=== PATIENT | female | born 1945 | race Caucasian/White ===

== ENCOUNTER 2020-11-23 08:09 | Outpatient (CLI) | payer MEDICARE, SELFPAY ==
--- NOTE | 2020-11-23 08:17 | MM_ITS ---
WS: [id number] BILATERAL SCREENING DIGITAL MAMMOGRAM WITH CAD HISTORY: SCREENING COMPARISON: 03/25/2019 and 08/21/2017 Bilateral CC and MLO views submitted. Computer aided detection analyzed. Breast composition: There are scattered areas of fibroglandular density. No suspicious masses, microc alcifications or architectural distortion. Benign calcifications and vascular calcifications in each breast. MM/[place] [id number] IMPRESSION: BI-RADS: 2-Benign FOLLOW UP: 1 Year Follow-up
== END 2020-11-23 08:10 | disposition home or self-care (01) ==
LOC: RADSHAW 08:14
PROVIDERS: Family Provider Family Medicine; PCP Family Medicine; Visit Provider Family Medicine
DX: Z12.31 Encounter for screening mammogram for malignant neoplasm of breast (principal)
CPT/HCPCS: 77067

== ENCOUNTER 2021-11-23 13:13 | Outpatient (CLI) | payer MEDICARE, SELFPAY ==
--- NOTE | 2021-11-23 13:22 | MM_ITS ---
WS: [id number] BILATERAL 3D TOMOSYNTHESIS DIGITAL SCREENING MAMMOGRAPHY WITH CAD CLINICAL INFORMATION: SCREENING HISTORY: Screening mammogram. No current complaints. COMPARISON: November 23, 2020 TECHNIQUE: Bilateral CC and MLO views. FINDINGS: Scattered fibroglandular densities bilaterally. Incidental Punctate and lucent centered calcification s. Vascular calcification. Stable clustered calcifications LEFT breast. No suspicious focal mass, asy mmetry, calcifications, or architectural distortion. No evidence of malignancy. MM/[place] [id number] IMPRESSION: BI-RADS: 2-Benign FOLLOW UP: 1 Year Follow-up Recommend return to annual screening mammography.
== END 2021-11-23 13:14 | disposition home or self-care (01) ==
LOC: RAD 13:19
PROVIDERS: PCP Family Medicine; Visit Provider Family Medicine
DX: Z12.31 Encounter for screening mammogram for malignant neoplasm of breast (principal)
CPT/HCPCS: 77063; 77067

== ENCOUNTER 2021-12-28 13:11 | Outpatient (CLI) | payer MEDICARE, SELFPAY ==
--- NOTE | 2021-12-28 13:37 | XR_ITS ---
WS: [id number] SCREENING DEXA SCAN [employer] [place] CLINICAL INFORMATION: OSTEOPOROSIS COMPARISON: FINDINGS: The L1-L4 bone mineral density measures 1.036 g/cm2. This corresponds to a T score score of -1.2 and Z score of -0.6. Left femoral neck bone mineral density measures 0.838 g/cm2. This corresponds to a T score of -1.3 an d Z score of -0.3. Right femoral neck bone mineral density measures 0.863 g/cm2. This corresponds to a T score -1.1of an d Z score of -0.1. Mean femoral neck bone mineral density measures 0.850 g/cm2. This corresponds to a T score of -1.2 an d Z score of -0.2. XR/XR DEXA axial skeleton* [id number] IMPRESSION: Osteopenia lumbar spine. Osteopenia femoral necks. Patient's FRAX calculated 10 year probability for major osteoporotic fracture i s 11.3 % and osteoporotic hip fracture is 2.4%. Bone mineral density lumbar spine has increased 4.9% since 2019. Bone mineral density in the femoral necks has increased 0.6% since 2019.
== END 2021-12-28 13:12 | disposition home or self-care (01) ==
LOC: RAD 13:13
PROVIDERS: PCP Family Medicine; Visit Provider Family Medicine
DX: Z13.820 Encounter for screening for osteoporosis (principal); M85.89 Other specified disorders of bone density and structure, multiple sites
CPT/HCPCS: 77080

== ENCOUNTER 2022-03-02 19:44 | Inpatient (IN) | payer MEDICARE, SELFPAY ==
[2022-03-02 19:58] VITALS: BP 183/123; PULSE 108; RESP 18; TEMP 36.9; O2SAT 95; BMI 39.1
[2022-03-02 20:34] LABS: Blood Urine Trace (Negative); Glucose Urine UA Norm (Normal); Ketones Urine Negative (Negative); Protein Urine Neg (Negative); Specific Gravity, Urine 1.015 (1.005-1.030); Urine Appearance Clear (CLEAR); Urine Color Yellow (Yellow); pH Urine 5 (5-7)
[2022-03-02 20:35] LABS: Add Urine Microscopic? YES; Bilirubin Urine Neg (Negative); Leukocyte Esterase Urine Negative (Negative); Nitrate Urine Negative (Negative); Urobilinogen Urine Norm (Negative)
[2022-03-02 20:36] LABS: RBC Urine 0-4 /hpf (0-2); Squamous Epithelial Cell Urine 0-4 /hpf (0-5); WBC Urine 0-4 /hpf (0-5)
[2022-03-02 20:37] LABS: Add Urine Culture? No
[2022-03-02 20:40] LABS: Basophils # 0.1 10^3/uL (0.0-0.1); Basophils % 0.4 %; Eosinophils # 0.1 10^3/uL (0.0-0.8); Eosinophils % 0.4 %; Hematocrit 49.1 % (37.0-47.0); Hemoglobin 16.4 g/dL (11.5-15.3); Lymphocytes # 2.8 10^3/uL (0.8-4.8); Lymphocytes % 11.1 %; Mean Corpuscular HGB Conc 33.4 g/dL (30.0-36.0); Mean Corpuscular Hemoglobin 31.7 pg (28.0-34.0); Mean Platelet Volume 9.7 fL (7.4-10.4); Monocytes % 3.9 %; Neutrophils # 20.93 10^3/uL (1.8-7.7); Neutrophils % 83.9 %; Nucleated Red Blood Cells % 0 %; Platelet Count 318 10^3/cmm (130-400); Red Blood Count 5.17 10^6/uL (4.1-5.3); Red Cell Distribution Width 14.5 % (12.1-15.1)
[2022-03-02 21:00] LABS: Alanine Aminotransferase 24 U/L (0-33); Albumin Level 4.2 g/dL (3.5-5.2); Alkaline Phosphatase 106 U/L (35-105); Aspartate Amino Transferase 21 U/L (0-32); Blood Urea Nitrogen 14 mg/dL (8-23); Calcium 9.2 mg/dL (8.5-10.5); Carbon Dioxide 25 mmol/L (22-29); Chloride 101 mmol/L (98-107); Globulin 3.2 g/dL (1.3-4.6); Glucose 130 mg/dL (65-115); Lipase 30 U/L (13-60); Osmolality Calculated 288 mOsm/kg (285-295); Sodium 138 mmol/L (136-145); Total Bilirubin 0.4 mg/dL (0.15-1.2); Total Protein 7.4 g/dL (6.6-8.7)
[2022-03-02 21:02] LABS: Anion Gap 16.2 (5-19); Potassium 4.2 mmol/L (3.5-5.1)
--- NOTE | 2022-03-02 23:28 | CTR_ITS ---
PROCEDURE INFORMATION: Exam: CT Abdomen And Pelvis With Contrast Exam date and time: 03/03/2022 12:12 AM Age: 76 years old Clinical indication: Abdominal pain; Localized; Prior surgery; Surgery type: Hysterectomy; Patient HX: C/O lower abd pain. TECHNIQUE: Imaging protocol: Computed tomography of the abdomen and pelvis with contrast. Radiation optimization: All CT scans at this facility use at least one of these dose optimization techniques: automated exposure control; mA and/or kV adjustment per patient size (includes targeted exams where dose is matched to clinical indication); or iterative reconstruction. Contrast material: OMNI 350; Contrast volume: 100 ml; Contrast route: INTRAVENOUS (IV); COMPARISON: No relevant prior studies available. RADIATION DOSE METRICS: Total DLP (mGy-cm): 1053.73 FINDINGS: Lungs: The lung bases are clear. No effusion Diaphragm: Small hiatal hernia. Liver: There is fatty infiltration of the liver. Gallbladder and bile ducts: There is cholelithiasis without wall thickening or pericholecystic fluid. No bile duct stone. Pancreas: Normal. No ductal dilation. Spleen: Normal. No splenomegaly. Adrenal glands: Normal. No mass. Kidneys and ureters: There are multiple small bilateral parapelvic renal cyst. Stomach and bowel: There are multiple sigmoid diverticuli. There is perisigmoid fat stranding. No fluid collection . Appendix: No evidence of appendicitis. Intraperitoneal space: Unremarkable. No free air. No significant fluid collection. Vasculature: Unremarkable. No abdominal aortic aneurysm. Lymph nodes: Unremarkable. No enlarged lymph nodes. Urinary bladder: Small amount of contained perforation adjacent to the dome of the urinary bladder.. Reproductive: There has been a hysterectomy. Bones/joints: Unremarkable. No acute fracture. Soft tissues: Unremarkable. CT/CT abdomen pelvis w con* [id number] IMPRESSION: 1. Small hiatal hernia. 2. Fatty infiltration of the liver. 3. Cholelithiasis without cholecystitis or choledocholithiasis. 4. Acute diverticulitis with contained perforation adjacent to the urinary bladder. No abscess. COMMENTS: Consistent with the [place] [employer]'s Incidental Findings Committee white paper (J Am Aleyda Radiol 2018): Any incidental renal lesion less than 1 cm or classified as too small to characterize, or any incidental cystic renal lesion characterized as simple-appearing, is likely benign. No follow-up imaging is recommended for these lesions per consensus recommendations based on imaging criteria.
--- NOTE | 2022-03-02 23:37 | W.ED.ABDPA2 ---
HPI - Abdominal Pain General: Chief Complaint: Abdominal Pain Stated Complaint: lower abd pain Time Seen by Provider: 03/02/22 23:25 Source: patient Mode of arrival: ambulatory Limitations: no limitations History of Present Illness: 76-year-old female states she has been having epigastric along with right upper quadrant pain since this afternoon. She states her pain has been worsening and sharp in nature rates it an 8 out of 10. She denies any nausea or vomiting. She denies any fevers she had a history of a hysterectomy still has her appendix and gallbladder. Associated Symptoms: Reports nausea; Denies chills, dysuria and fever(s) Review of Systems Const: Denies: fever(s), chills, body aches or change in appetite Eyes: Denies: blurry vision or eye discomfort ENMT: Denies: throat pain or dental pain Card: Denies: chest pain Resp: Denies: dyspnea GI: Reports: abdominal pain and nausea : Denies: dysuria Musc: Denies: neck pain or back pain Skin/Breast: Denies: rash Neuro: Denies: headache(s) Psych: Denies: depression Jelani/Lymph: Denies: easy bruising All/Imm: Denies: urticaria PFSH ED PFSH: Medical History No pertinent past medical history Denies diabetes, asthma, hypertension, seizures, DVT/PE PCP: Dr. Makenzie Yoon Surgical History S/P hysterectomy ---total abdominal hysterectomy with by lateral salpingo-oophorectomy done for cyst on uterus. She was told that there was no cancer or precancer Status post total left knee replacement 2017. Status post tubal ligation 1978-- immediately . Family History Mother Breast cancer Diagnosed at age 30, of same at age 32 Father Colon cancer diagnosed at age 88 Grandmother Diabetes maternal Family/Other Diabetes maternal aunts and uncles Stroke maternal Sister Hyperlipidemia Daughter Thyroid condition Denies family history of Ovarian cancer Heart disease Hypertension Uterine cancer Physical Exam Const: COMMON NORMALS: no acute distress, patient oriented x3 and healthy appearing HENMT: COMMON NORMALS: normocephalic and atraumatic HEAD & SCALP: normocephalic and atraumatic Eye: COMMON NORMALS: Equal, round and reactive pupils present and EOMs intact bilaterally PUPIL: Yes Equal, round and reactive pupils present Neck/C-Spine: COMMON NORMALS: full ROM and supple Chest: COMMONS NORMALS: normal inspection of the chest and normal palpation of entire chest wall Resp: COMMON NORMALS: normal respiratory effort, No retractions, No use of accessory muscles and clear to auscultation bilaterally AUSCULTATION: clear to auscultation bilaterally Cardio: COMMON NORMALS: regular rate, regular rhythm and No murmurs present (Cardio) RATE: regular rate RHYTHM: regular rhythm GI: COMMON NORMALS: Normal to inspection, nondistended, normoactive bowel sounds present, Soft to palpation and no masses PALPATION: Yes Soft to palpation OTHER: epigastric and ruq tenderness Extremity: COMMON NORMALS: normal to inspection and full ROM Neuro: COMMON NORMALS: patient oriented x3, moves all extremities and no focal motor deficits Psych: COMMON NORMALS: mental status grossly normal, Normal thought process present and cooperative THOUGHT PROCESS: Normal thought process present Skin: COMMON NORMALS: no rashes or lesions noted and no wounds GENERAL SKIN EXAM: no rashes or lesions noted Course Vital Signs: Vital signs: Vital Signs Temperature 98.4 F 03/03/22 00:24 Pulse Rate 102 H 03/03/22 00:24 Respiratory Rate 17 03/03/22 02:29 Blood Pressure 179/83 03/03/22 00:24 Pulse Oximetry 94 03/03/22 02:29 Oxygen Delivery Me thod 03/03/22 00:24 MDM - Abdominal Pain Medical Decision Making Patient presents here with abdominal pain is found to have diverticulitis with an elevated white count I spoke to hospitalist along with surgeon on-call and will admit for IV antibiotics. Patient's blood pressure here been stable. Lab Data : 03/02/22 20:33 03/02/22 20:33 Labs/Radiology: Radiology Impressions Abdomen/Pelvis CT 03/02/22 23:28 IMPRESSION: 1. Small hiatal hernia. 2. Fatty infiltration of the liver. 3. Cholelithiasis without cholecystitis or choledocholithiasis. 4. Acute diverticulitis with contained perforation adjacent to the urinary bladder. No abscess. COMMENTS: Consistent with the [place] [employer]'s Incidental Findings Committee white paper (J Am Aleyda Radiol 2018): Any incidental renal lesion less than 1 cm or classified as too small to characterize, or any incidental cystic renal lesion characterized as simple-appearing, is likely benign. No follow-up imaging is recommended for these lesions per consensus recommendations based on imaging criteria. ADDENDUM: 03/03/22 0157 THIS REPORT CONTAINS FINDINGS THAT MAY BE CRITICAL TO PATIENT CARE. The findings were verbally communicated by me to ELVIS BAEZA via telephone conference at 1:55 AM CDT on 03/03/2022. The findings were acknowledged and understood. Laboratory Results WBC 25.0 10^3/uL (4.0-10.0) H 03/02/22 20: RBC 5.17 10^6/uL (4.1-5.3) 03/02/22 20: Hgb 16.4 g/dL (11.5-15.3) H 03/02/22 20: Hct 49.1 % (37.0-47.0) H 03/02/22 20:33 MCV 95.0 fl (81-99) 03/02/22 20: MCH 31.7 pg (28.0-34.0) 03/02/22 20: MCHC 33.4 g/dL (30.0-36.0) 03/02/22 20: RDW 14.5 % (12.1-15.1) 03/02/22 20:33 Plt Count 318 10^3/cmm (130-400) 03/02/22: MPV 9.7 fL (7.4-10.4) 03/02/22 20:33 Neut % (Auto) 83.9 % 03/02/22 20:33 Lymph % (Auto) 11.1 % 03/02/22 20:33 [place] % (Auto) 3.9 % 03/02/22 20: Eos % (Auto) 0.4 % 03/02/22 20:33 Baso % (Auto) 0.4 % 03/02/22 20:33 Neut # (Auto) 20.93 10^3/uL (1.8-7.7) H 03/02/22 20:33 Lymph # (Auto) 2.8 10^3/uL (0.8-4.8) 03/02/22 20:33 [place] # (Auto) 1.0 10^3/uL (0.2-0.9) H 03/02/22 20:33 Eos # (Auto) 0.1 10^3/uL (0.0-0.8) 03/02/22 20:33 Baso # (Auto) 0.1 10^3/uL (0.0-0.1) 03/02/22 20:33 Nucleated RBC % (auto) 0 % 03/02/22 20:33 Nucleated RBCs # 0.0 /100WBC 03/02/22 20:33 Sodium 138 mmol/L (136-145) 03/02/22 20:33 Potassium 4.2 mmol/L (3.5-5.1) 03/02/22 20:33 Chloride 101 mmol/L (98-107) 03/02/22 20:33 Carbon Dioxide 25 mmol/L (22-29) 03/02/22:33 Anion Gap 16.2 (5-19) 03/02/22 20:33 BUN 14 mg/dL (8-23) 03/02/22 20:33 Creatinine 0.7 mg/dL (0.5-0.9) 03/02/22 20:33 GFR Calculation Not Reportable 03/02/22 20: Glucose 130 mg/dL (65-115) H 03/02/22 20:33 Calculated Osmolality 288 mOsm/kg (285-295) 03/02/22 20: Lactate 2.5 mmol/L (0.5-2.2) H 03/02/22 21:00 Calcium 9.2 mg/dL (8.5-10.5) 03/02/22 20:33 Total Bilirubin 0.4 mg/dL (0.15-1.2) 03/02/22 20:33 AST 21 U/L (0-32) 03/02/22 20:33 ALT 24 U/L (0-33) 03/02/22 20:33 Alkaline Phosphatase 106 U/L (35-105) H 03/02/22 20:33 Total Protein 7.4 g/dL (6.6-8.7) 03/02/22 20:33 Albumin 4.2 g/dL (3.5-5.2) 03/02/22: Globulin 3.2 g/dL (1.3-4.6) 03/02/22: Lipase 30 U/L (13-60) 03/02/22: Urine Color Yellow (Yellow) 03/02/22 20: Urine Appearance Clear (CLEAR) 03/02/22: Urine pH 5 (5-7) 03/02/22: Ur Specific [place] 1.015 (1.005-1.030) 03/02/22: Urine Protein Neg (Negative) 03/02/22: Urine Glucose (UA) Norm (Normal) 03/02/22: Urine Ketones Negative (Negative) 03/02/22: Urine Blood Trace (Negative) H 03/02/22: Urine Nitrate Negative (Negative) 03/02/22: Urine Bilirubin Neg (Negative) 03/02/22: Urine Urobilinogen Norm mg/dL (Negative) 03/02/22: Ur Leukocyte Esterase Negative (Negative) 03/02/22: Urine RBC 0-4 /hpf (0-2) H 03/02/22 20: Urine WBC 0-4 /hpf (0-5) H 03/02/22 20: Ur Squamous Epith Cells 0-4 /hpf (0-5) H 03/02/22: Amorphous Sediment Not Reportable 03/02/22: Urine Bacteria None /hpf (NONE) 03/02/22 20: Discharge Plan Discharge Patient Disposition: Admitted As Inpatient Clinical Impression: Diverticulitis Condition: Stable Coding Level of Care Code ED [place] for Carmen Fwd Exam Comprehensive
[2022-03-02 23:59] LABS: Lactate (Lactic Acid level) 2.5 mmol/L (0.5-2.2)
[2022-03-03] VITALS (15 sets, daily range): BP systolic 121–179; BP diastolic 72–83; PULSE 78–121; RESP 16–20; TEMP 36.9–38.1; O2SAT 92–96
[2022-03-03] MEDS: iohexol 350 mg/mL 100 mL Btl IV (00:14)
[2022-03-03] MEDS: ondansetron 2 mg/ML SDV 2 mL 4 MG IVP (00:19)
[2022-03-03] MEDS: HYDROmorphone 1 mg/mL INJ 1 mL 0.5 MG IVP ×2 (00:19→02:29)
[2022-03-03] MEDS: ciprofloxacin 400 MG/200 ML PREMIX 200 MG IV (02:15)
[2022-03-03] MEDS: lactated ringers 1,000 ML 999 ML IV (02:55)
[2022-03-03] MEDS: metroNIDAZOLE IV 500 MG/100 ML PREMIX 100 MG IV (03:35)
--- NOTE | 2022-03-03 04:11 | PM.HP ---
Providers/Chief Complaint Admitting Physician: Chelsey Moreau MD Primary Care Provider: Makenzie Yoon MD Chief Complaint: lower abd pain History of Present Illness Zoë Chapman is a 76 year old female with no significant past medical comorbidities presenting with acute onset abdominal pain at 5:30 PM this evening. Pain started suddenly, located in the periumbilical area radiating down into the perineum. No apparent exacerbating or relieving factors. No fever. She has had 1 normal bowel movement thereafter. No nausea or vomiting. CT abdomen performed upon arrival showed acute diverticulitis with contained perforation. Patient has never had a colonoscopy before. She gets colon cancer screening with annual Cologuard's. No complaints of dysuria. Review of Systems General: Reports: 10 or more systems reviewed and unremarkable except in HPI and below Const: Denies: fever(s), chills or body aches Eyes: Denies: change in vision, blurry vision or photophobia ENMT: Reports: hoarseness; Denies: throat pain, enlarged tonsils, odynophagia or nasal congestion Card: Denies: chest pain, palpitations, irregular heart rhythm, edema, swelling of feet/ankles, lightheadedness, pre-syncope, dyspnea on exertion or orthopnea Resp: Denies: dyspnea, productive cough, non-productive cough, wheezing, stridor, pain on inspiration, change in phlegm color, hemoptysis or chest congestion GI: Denies: abdominal pain, nausea, vomiting, hematemesis, coffee ground emesis, dysphagia, heartburn, diarrhea, constipation, GI cramping, change in stool character, hematochezia or melena : Denies: flank pain, difficulty voiding, dysuria, urinary frequency, urinary urgency, urinary hesitancy or hematuria Musc: Denies: neck pain, back pain, extremity pain, joint swelling, joint warmth or deformity Neuro: Denies: headache(s), numbness in extremities, weakness in extremities, sensory changes, difficulty walking, frequent falls, dizziness, vertigo, behavioral changes, Slurred speech present or seizure-like activity Psych: Denies: anxiety, depression, suicidal ideation or homicidal ideation Endo: Denies: polyuria, polydipsia, tired all the time, cold intolerance or hot flashes Jelani/Lymph: Denies: easy bruising or easy bleeding Medications/Allergies Home Medications Medication Instructions Recorded Confirmed Last Taken Type calcium carbonate [Calcium 600] PO 11/10/20 01/03/21 Unknown History herbal sleep aid PO 11/10/20 01/03/21 Unknown History multivitamin 1 tab PO DAILY 11/10/20 01/03/21 Unknown History omega-3 fatty acids 100 mg mg PO 11/10/20 01/03/21 Unknown History chewable tablet turmeric 400 mg capsule mg PO 11/10/20 01/03/21 Unknown History [place] PO 12/07/20 01/03/21 Unknown History Allergies Allergy/AdvReac Type Severity Reaction Status Date / Time No Known Allergies Allergy Unverified 02/22/21 11:26 PFSH Acute PFSH: Medical History No pertinent past medical history Denies diabetes, asthma, hypertension, seizures, DVT/PE PCP: Dr. Makenzie Yoon Surgical History S/P hysterectomy ---total abdominal hysterectomy with by lateral salpingo-oophorectomy done for cyst on uterus. She was told that there was no cancer or precancer Status post total left knee replacement 2017. Status post tubal ligation 1978-- immediately . Family History Mother Breast cancer Diagnosed at age 30, of same at age 32 Father Colon cancer diagnosed at age 88 Grandmother Diabetes maternal Family/Other Diabetes maternal aunts and uncles Stroke maternal Sister Hyperlipidemia Daughter Thyroid condition Denies family history of Ovarian cancer Heart disease Hypertension Uterine cancer Vitals/I&O/Wt Last Vital Signs Temp 98.9 F 03/03/22 03:47 Pulse 109 H 03/03/22 03:47 Resp 20 H 03/03/22 03:47 BP 121/72 03/03/22 03:47 Pulse Ox 92 03/03/22 03:47 O2 Del Method 03/03/22 02:56 03/02/22 03/02/22 03/03/22 14:59 22:59 06:59 Intake Total 200 / 200 Balance 200 / 200 Weight last 48 hrs Weight 113.398 kg Physical Exam Narrative: General: No acute distress, AO x3 HEENT: PERRLA, pupils bilaterally equal and reactive, pallors not present Chest: Normal vesicular breath sounds, no added sounds, equal good air entry bilaterally CVS: S1-S2 regular, no murmurs, no tachycardia, no gallops, no rubs Abdomen: Soft, nontender, no organomegaly, bowel sounds present Neuro: No focal deficits, no facial deformity, AO x3, power 5/5 in all limbs Data : 03/02/22 20:33 03/02/22 20:33 A&P Assessment and plan (1) Diverticulitis: Presenting today with presenting today with abdominal pain. Found to have acute diverticulitis with contained perforation. NPO. Bowel rest. Empiric antibiotic coverage with piperacillin tazobactam IV fluids D5 normal saline at 75 cc an hour. As needed morphine for pain control. Surgery consult. Attestations Medical Necessity Statement*: Anticipate greater than 2 midnight admission for management of diverticulitis, iv abx and iv fluids Coding Level of Care Code Acute Presentation Manager for ramana [facility] Diagnoses Diverticulitis K57.92
[2022-03-03] MEDS: morphine 4 mg/mL SDV 1 mL 2 MG IVP ×3 (04:50→21:17)
[2022-03-03] MEDS: piperacillin-tazobactam 3.375 GM in sodium chloride 0.9% (plus) 50 ML IV ×3 (04:52→20:17)
[2022-03-03] MEDS: enoxaparin 40 mg/0.4 mL Syringe SUBCUT (04:52)
[2022-03-03] MEDS: dextrose 5%-sod chloride 0.9% 1,000 ML 75 ML IV (05:47)
[2022-03-03] MEDS: pantoprazole DR 40 mg Tablet PO (08:20)
[2022-03-03] MEDS: acetaminophen 325 mg Tablet 650 MG PO ×3 (08:26→23:35)
--- NOTE | 2022-03-03 10:43 | PC.NURSE ---
Patient up and ambulating in the bor[address] way at this time. Patient requesting Ice chips. gave verbal approval for a small amount.
--- NOTE | 2022-03-03 12:24 | P.PN_ITS ---
Subjective Subjective: [place] is appreciated. Admitted overnight. Examination today seen with family at bedside. Laying comfortably in bed. Complaining of mild abdominal pain. Has not passed any flatus. Last bowel movement was last night. Normal formed for her. Denies of having any nausea, vomiting, headache. On 1 L of oxygen supplementation. Vitals/I&O/Wt Last Vital Signs Temp 99.1 F 03/03/22 12:00 Pulse 101 H 03/03/22 12:00 Resp 16 03/03/22 12:00 BP 174/80 03/03/22 12:00 Pulse Ox 94 03/03/22 12:00 O2 Del Method 03/03/22 12:00 O2 Flow Rate 2 03/03/22 10:43 03/02/22 03/03/22 03/03/22 22:59 06:59 14:59 Intake Total 200 / 200 1150 / 1150 Balance 200 / 200 1150 / 1150 Weight last 48 hrs Weight 113.398 kg Physical Exam Narrative: General: No acute distress, AO x3 HEENT: PERRLA, pupils bilaterally equal and reactive, pallors not present Chest: Normal vesicular breath sounds, no added sounds, equal good air entry bilaterally CVS: S1-S2 regular, no murmurs, no tachycardia, no gallops, no rubs Abdomen: Soft, nontender, no organomegaly, bowel sounds present Neuro: No focal deficits, no facial deformity, AO x3, power 5/5 in all limbs Data : 03/02/22 20:33 03/02/22 20:33 Micro: Microbiology 03/03/22 10:05 Blood Culture - Preliminary Blood SPECIMEN COLLECTED 03/03/22 10:05 Blood Culture - Preliminary Blood SPECIMEN COLLECTED A&P Assessment and plan (1) Diverticulitis: Contained perforation. No abscess. Surgical recommendations appreciated. Conservative treatment for now. N.p.o. for bowel rest. Continue empiric Zosyn. D5 NS at 75 cc/h. Protonix, Zofran as needed. Early ambulation. Incentive spirometry. Morphine as needed 1 mg every 4 hours for pain. Check blood cultures. Plan High blood pressures: Most likely secondary to pain. Hydralazine 10 mg every 4 hours as needed for systolic blood pressure of 160 mmHg and more. Full code. NPO. Protonix for PUD prophylaxis Heparin 5000 every 12 DVT prophylaxis Attestations Medical Necessity Statement*: Requires further hospitalization for management of cellulitis with contained perforation without abscess while patient is treated conservatively Time Spent in Patient Care: Greater than 35 minutes Coding Level of Care Code Acute Community Mental Health Social Worker for [facility] Fwd Diagnoses Diverticulitis K57.92
--- NOTE | 2022-03-03 12:57 | PC.CHAP ---
Pastoral Care Encounter/Spiritual Assessment Type of Contact [] Declined clearance coordinator visit [] Patient/Family/Request visit [] Outpatient visit [] Follow-up visit [] Physician referral [] Code/Alert [x] Routine visit [] Staff referral [] Actively dying [x] Patient sleeping [] Family support [] [] Out of room [] Palliative care [] [] Receiving care in room [] Pre-surgical visit [] Trauma [] Long length of stay [] ICU visit [] Other: Relational/Emotional Strength [] Patient feels connected with others/family/visitors/staff [] Distress [] Loneliness/isolation [] Abandonment Spirituality of Patient [] Person of Sherrie [] Attends Restoration of their Sherrie [] Believes in Prayer [] Reads Bible or Religion materials [] There are Spiritual issues to be addressed College Service Officer Interventions [] Prayer [] Active listening [] Non-anxious presence [] Spiritual/emotional support [] Crisis/trauma care [] Spiritual counseling [] Bereavement support [] Provided bereavement packet [] Provided Bible/devotional materials [] Provided toy/stuffed animal, coloring book to patient or family member [] Provided Communion [] Anointing/[place] [] Salvation [] Completed spiritual assessment [] Other: Impact on Illness or Injury [] Angry [] Fearful [] Anxious [] Often cries [] Exhaustion [] Unable to work [] Unable to attend bahai [] Unable to walk/stand [] Unable to read [] Unable to drive [] Unable to eat/drink [] Unable to sleep [] Unable to be with family [] Patient intubated [] Other: Summary Time spent with patient
[2022-03-03] MEDS: heparin 5,000 unit/mL INJ 1 mL 5000 UNIT SUBCUT (12:59)
--- NOTE | 2022-03-03 16:56 | P.CONIM_ITS ---
Providers/Reason For Consult Consulting Physician/Specialty*: General Surgery Reason for Consult*: Diverticulitis Attending Physician: Todd Upton MD Primary Care Provider: Makenzie Yoon MD History of Present Illness History of Present Illness Zoë Chapman is a 76 year old female She presented to the emergency room with acute abdominal pain, 03/06, it started yesterday and was getting progressively worse. She was nauseated but did not vomit. She had a bowel movement yesterday. She had multiple episodes of chills. No fever. Denies any urinary symptoms of burning or dysuria. Because the pain was getting progressively worse she went to seek medical attention. She was having similar episodes of pain in the past multiple times, however, none of them was as severe as the current episode. She never had a colonoscopy. Her father had a history of colon cancer, however, never heard surgery and at 80s. She was using a Cologuard and the last time it was negative several months ago. History of hysterectomy in the past. History of rectocele, nonoperative treatment was collected by the patient Review of Systems Narrative: 10 point review of systems is negative except as per HPI Medications/Allergies Home Medications Medication Instructions Recorded Confirmed Last Taken Type herbal sleep aid 1 tab PO BEDTIME 11/10/20 03/03/22 Unknown History multivitamin 1 tab PO DAILY 11/10/20 03/03/22 Unknown History turmeric 400 mg capsule 400 mg PO BID 11/10/20 03/03/22 Unknown History acetaminophen 650 mg 650 mg PO Q8H PRN Pain 03/03/22 03/03/22 Unknown History tablet,extended release calcium carbonate 600 mg calcium 1,200 mg PO BEDTIME 03/03/22 03/03/22 Unknown History (1,500 mg) tablet (Calcium) garlic 200 mg tablet 400 mg PO DAILY 03/03/22 03/03/22 Unknown History ibuprofen 600 mg tablet 1,200 mg PO Q8H PRN Pain 03/03/22 03/03/22 Unknown History methylsulfonylmethane 1,000 mg 1,000 mg PO BID 03/03/22 03/03/22 Unknown History capsule (MSM) naproxen sodium 220 mg capsule 220 mg PO Q8H PRN Pain 03/03/22 03/03/22 Unknown History (Aleve) omega 6-arh-ywv-fish oil 100 1 cap PO DAILY 03/03/22 03/03/22 Unknown History mg-160 mg-1,000 mg capsule (Fish Oil) Allergies Allergy/AdvReac Type Severity Reaction Status Date / Time No Known Allergies Allergy Verified 03/03/22 07:44 Current Medications Generic Name Dose Route Start Last Admin Trade Name Gustavoq PRN Reason Stop Dose Admin Acetaminophen 650 mg 03/03/22 04:08 03/03/22 15:55 Acetaminophen 325 Mg Tablet PO 650 mg Q6H PRN Administration Mild/Mod Pain Or Temp >/= 101 Heparin Sodium (Porcine) 5,000 unit 03/03/22 12:30 03/03/22 12:59 Heparin 5,000 Unit/Ml Inj 1 Ml SUBCUT 5,000 unit Q12H RAFFI Administration Dextrose/Sodium Chloride 1,000 mls @ 75 mls/hr 03/03/22 04:15 03/03/22 05:47 Dextrose 5%-Sod Chloride 0.9% IV 75 mls/hr .[id number] RAFFI Administration Piperacillin Sod/Tazobactam 50 mls @ 12.5 mls/hr 03/03/22 04:30 03/03/22 15:38 Sod 3.375 gm/ Sodium Chloride IV Infused Q8H RAFFI Infusion Protocol Morphine Sulfate 2 mg 03/03/22 04:08 03/03/22 13:08 Morphine 4 Mg/Ml Sdv 1 Ml IVP 2 mg Q4H PRN Administration SEVERE PAIN Pantoprazole Sodium 40 mg 03/03/22 12:30 03/03/22 12:53 Pantoprazole 40 Mg Sdv IVP Not Given DAILY RAFFI PFSH Acute 2 PFSH: Medical History (Updated 03/03/22 @ 17:23 by Cameron Schaffer MD) No pertinent past medical history Denies diabetes, asthma, hypertension, seizures, DVT/PE PCP: Dr. Makenzie Yoon Rectocele 10/2020--grade 3 rectocele, grade 1 cystocele and grade 1 vault prolapse. Declined surgery wanted pessary-fitted with a #4 white ring pessary with support no knob on 11/24/3020. Self discontinued it on 02/14/2021 due to bowel issues and feels fine without any symptoms of prolapse and so pessary was not [id number] exam in 6 months Surgical History S/P hysterectomy ---total abdominal hysterectomy with by lateral salpingo-oophorectomy done for cyst on uterus. She was told that there was no cancer or precancer Status post total left knee replacement 2017. Status post tubal ligation 1978-- immediately . Family History Mother Breast cancer Diagnosed at age 30, of same at age 32 Father Colon cancer diagnosed at age 88 Grandmother Diabetes maternal Family/Other Diabetes maternal aunts and uncles Stroke maternal Sister Hyperlipidemia Daughter Thyroid condition Denies family history of Ovarian cancer Heart disease Hypertension Uterine cancer Vitals/I&O/Wt Last Vital Signs Temp 99.3 F 03/03/22 16:00 Pulse 108 H 03/03/22 16:00 Resp 16 03/03/22 16:00 BP 152/83 03/03/22 16:00 Pulse Ox 93 03/03/22 16:00 O2 Del Method 03/03/22 16:00 O2 Flow Rate 2 03/03/22 10:43 03/03/22 03/03/22 03/03/22 06:59 14:59 22:59 Intake Total 200 / 200 1150 / 1150 50 / 1200 Balance 200 / 200 1150 / 1150 50 / 1200 Weight last 48 hrs Weight 250 lb Physical Exam Narrative: General: [No acute distress] Psych: [AAOx3] Eyes: [sclerae are white] Head/ENT: [normocephalic, symmetric] CV: [regular] pulse, [slightly tachychardic to 102], no JVD Lungs: [symmetrical chest rise] Abdomen: [soft, ND, tender to palpation in the left lateral and lower quadrants. No peritoneal signs.] Ext: [no obvious traumatic deformities] Skin: warm Data : 03/02/22 20:33 03/02/22 20:33 Micro: Microbiology 03/03/22 10:05 Blood Culture - Preliminary Blood SPECIMEN COLLECTED 03/03/22 10:05 Blood Culture - Preliminary Blood SPECIMEN COLLECTED Other data: I reviewed CT scan. It showed a perforated diverticulitis, contained small perforation, no intraperitoneal fluid. A&P Assessment and plan (1) Diverticulitis: (2) Obesity: (3) Dehydration: (4) Hypertension: Plan The patient has a small contained perforation. She is hemodynamically stable with only mild tachycardia. She does not appear sick or profoundly septic at this time. Blood pressure remains within normal limits. Given the limited perforation I will try to attempt to manage this episode of diverticulitis nonoperatively. If successful, she will need a colonoscopy and elective sigmoidectomy with primary anastomosis. I will give her 24 hours and reassess for physiologic state as well as blood work tomorrow. We will continue with serial abdominal exam in the meanwhile, if she deteriorates physiologically or develops peritoneal signs, will proceed with surgery today, however, in this scenario the likelihood of colostomy will be significantly higher. The plan was discussed with the patient. She does not want to have surgery right now, if the condition can be managed without immediate surgery she would like to take this option. The patient is dehydrated, her lips are dry, hemoglobin is elevated as well as hematocrit. Discussed with Dr. Woodward. He is concerned about fluid overload and at this time would like to limit her fluid intake to no more than 100 cc/h. I will continue with frequent reassessment and will discuss fluid resuscitation with medicine in case she stays dehydrated. The patient's blood pressure is elevated. Possibly secondary to pain, she is only receiving morphine and Tylenol, I will start her on Percocet p.o. We will keep her n.p.o. for now, will start on clears if abdominal pain and physiologic condition improves. Will repeat labs tomorrow a.m. The plan was discussed with the bedside nurse. Coding Level of Care Code Acute Actuarial Technician for [facility] Jack Diagnoses Diverticulitis K57.92 Obesity E66.9 Dehydration E86.0 Hypertension I10
--- NOTE | 2022-03-03 18:46 | PM.PN ---
Subjective Subjective: Examined on p.m. rounds. She is accompanied by her daughter. She ambulated several times today. Abdominal pain already improved. She feels better overall as well. Abdomen soft, nondistended, tender to palpation in the left quadrants as in the morning. No peritoneal signs. Continue observation, IV antibiotics, n.p.o. We will reassess tomorrow a.m. Labs ordered. I will switch her to Lovenox, high risk for DVT Vitals/I&O/Wt Last Vital Signs Temp 99.3 F 03/03/22 16:00 Pulse 108 H 03/03/22 16:00 Resp 16 03/03/22 16:00 BP 152/83 03/03/22 16:00 Pulse Ox 93 03/03/22 16:00 O2 Del Method 03/03/22 16:00 O2 Flow Rate 2 03/03/22 10:43 03/03/22 03/03/22 03/03/22 06:59 14:59 22:59 Intake Total 200 / 200 1150 / 1150 50 / 1200 Balance 200 / 200 1150 / 1150 50 / 1200 Weight last 48 hrs Weight 250 lb Data : 03/02/22 20:33 03/02/22 20:33 Micro: Microbiology 03/03/22 10:05 Blood Culture - Preliminary Blood SPECIMEN COLLECTED 03/03/22 10:05 Blood Culture - Preliminary Blood SPECIMEN COLLECTED Attestations Medical Necessity Statement*: Diverticulitis Coding Level of Care Code Acute Main Entree Cook And Cashier for [facility]
--- NOTE | 2022-03-03 18:55 | PC.NURSE ---
Bedside Report given to Lana ACOSTA at this time
[2022-03-04] VITALS (7 sets, daily range): BP systolic 120–143; BP diastolic 73–83; PULSE 85–91; RESP 16–20; TEMP 36.9–37.4; O2SAT 94–97
[2022-03-04] MEDS: dextrose 5%-sod chloride 0.9% 1,000 ML 75 ML IV ×2 (03:43→15:45)
[2022-03-04] MEDS: oxyCODONE-APAP 5-325 mg Tablet 1 TAB PO (03:43)
[2022-03-04] MEDS: piperacillin-tazobactam 3.375 GM in sodium chloride 0.9% (plus) 50 ML IV ×3 (03:43→20:57)
[2022-03-04 05:13] LABS: Basophils # 0.1 10^3/uL (0.0-0.1); Basophils % 0.4 %; Eosinophils % 0.2 %; Hematocrit 39.2 % (37.0-47.0); Hemoglobin 12.8 g/dL (11.5-15.3); Lymphocytes % 11.9 %; Mean Corpuscular HGB Conc 32.7 g/dL (30.0-36.0); Mean Corpuscular Hemoglobin 31.4 pg (28.0-34.0); Mean Corpuscular Volume 96.3 fl (81-99); Monocytes % 6.1 %; Neutrophils # 13.79 10^3/uL (1.8-7.7); Nucleated Red Blood Cells % 0 %; Platelet Count 234 10^3/cmm (130-400); Red Blood Count 4.07 10^6/uL (4.1-5.3); Red Cell Distribution Width 14.9 % (12.1-15.1)
[2022-03-04 05:37] LABS: Alanine Aminotransferase 15 U/L (0-33); Alkaline Phosphatase 70 U/L (35-105); Anion Gap 12.5 (5-19); Aspartate Amino Transferase 17 U/L (0-32); Blood Urea Nitrogen 15 mg/dL (8-23); C Reactive Protein 238.1 mg/L (0.0-4.9); Calcium 8.1 mg/dL (8.5-10.5); Carbon Dioxide 24 mmol/L (22-29); Chloride 105 mmol/L (98-107); Chol HDL Ratio 2.89 mg/dL (0.0-4.40); Cholesterol 165 mg/dL (0-200); Globulin 2.9 g/dL (1.3-4.6); Glucose 138 mg/dL (65-115); HDL Cholesterol 57 mg/dL (60-100); LDL Cholesterol Calculated 90 mg/dL (50-129); Osmolality Calculated 289 mOsm/kg (285-295); Potassium 3.5 mmol/L (3.5-5.1); Sodium 138 mmol/L (136-145); Thyroid Stimulating Hormone 3.53 uIU/mL (0.27-4.20); Total Bilirubin 0.8 mg/dL (0.15-1.2); Total Protein 5.9 g/dL (6.6-8.7); Triglycerides 89 mg/dL (0-150); VLDL Cholestrol Calculation 18 mg/dL (0-30)
[2022-03-04 05:45] LABS: Estmated Average Glucose 97
[2022-03-04 05:53] LABS: Iron 19 ug/dL (37-145); Percent Saturation 8.4 % (20-50); Total Iron Binding Capacity 225 mcg/dl; Unsaturated Iron Binding 206 ug/dL (112-347)
[2022-03-04] MEDS: enoxaparin 40 mg/0.4 mL Syringe SUBCUT (06:02)
[2022-03-04 06:09] LABS: Vitamin B12 630 pg/mL (232-1245)
[2022-03-04 06:41] LABS: Folate Level > 20.0 ng/mL (4.8-37.3)
[2022-03-04] MEDS: pantoprazole 40 mg SDV IVP (09:04)
[2022-03-04] MEDS: acetaminophen 325 mg Tablet 650 MG PO ×3 (09:06→21:27)
--- NOTE | 2022-03-04 09:09 | PM.PN ---
Subjective Subjective: No acute events overnight. She is doing much better overall. Ambulated multiple times. Passed gas. Denies any difficulty urinating. She is hungry. No high fever. Heart rate down to normal Vitals/I&O/Wt Last Vital Signs Temp 99.3 F 03/04/22 07:52 Pulse 87 03/04/22 07:52 Resp 16 03/04/22 07:52 BP 140/82 03/04/22 07:52 Pulse Ox 95 03/04/22 07:52 O2 Del Method 03/04/22 07:52 O2 Flow Rate 2 03/03/22 10:43 03/03/22 03/04/22 03/04/22 22:59 06:59 14:59 Intake Total 1050 / 2200 50 / 2250 50 / 50 Balance 1050 / 2200 50 / 2250 50 / 50 Weight last 48 hrs Weight 250 lb Physical Exam Narrative: General: [No acute distress] Psych: [AAOx3] Eyes: [sclerae are white] Head/ENT: [normocephalic, symmetric] CV: [regular] pulse, not tachycardic, no JVD Lungs: [symmetrical chest rise] Abdomen: [soft, ND, less tender to palpation in the left lateral and lower quadrants compared to yesterday. No peritoneal signs.] Ext: [no obvious traumatic deformities] Skin: warm Data : 03/04/22 04:35 03/04/22 04:35 Other Labs: Decrease in white blood cell count noted Micro: Microbiology 03/03/22 10:05 Blood Culture - Preliminary Blood SPECIMEN COLLECTED 03/03/22 10:05 Blood Culture - Preliminary Blood SPECIMEN COLLECTED A&P Assessment and plan (1) Diverticulitis: (2) Obesity: (3) Dehydration: (4) Hypertension: Plan She is doing much better. Continue ongoing care, IV fluids, IV Zosyn, pain medications, DVT prophylaxis with Lovenox -Start clear liquid diet, decrease rate of IV fluids -CBC tomorrow a.m. Plan was discussed with the patient and her daughter. Attestations Medical Necessity Statement*: Diverticulitis Coding Level of Care Code Acute Activities Assistant for [facility] Eliceo Diagnoses Diverticulitis K57.92 Obesity E66.9 Dehydration E86.0 Hypertension I10
--- NOTE | 2022-03-04 12:07 | P.PN_ITS ---
Subjective Subjective: No acute events overnight. Patient is feeling a lot better today. Seen with family at bedside. Has been walking around. Started on liquid diet as per surgery today. States pain is better. Passing flatus. Has remained hemodynamically stable and afebrile. Vitals/I&O/Wt Last Vital Signs Temp 99.3 F 03/04/22 07:52 Pulse 87 03/04/22 07:52 Resp 16 03/04/22 07:52 BP 140/82 03/04/22 07:52 Pulse Ox 95 03/04/22 07:52 O2 Del Method 03/04/22 07:52 O2 Flow Rate 2 03/04/22 08:00 03/03/22 03/04/22 03/04/22 22:59 06:59 14:59 Intake Total 1050 / 2200 50 / 2250 350 / 350 Balance 1050 / 2200 50 / 2250 350 / 350 Weight last 48 hrs Weight 113.398 kg Physical Exam Narrative: General: No acute distress, AO x3 HEENT: PERRLA, pupils bilaterally equal and reactive, pallors not present Chest: Normal vesicular breath sounds, no added sounds, equal good air entry bilaterally CVS: S1-S2 regular, no murmurs, no tachycardia, no gallops, no rubs Abdomen: Soft, nontender, no organomegaly, bowel sounds present Neuro: No focal deficits, no facial deformity, AO x3, power 5/5 in all limbs Data : 03/04/22 04:35 03/04/22 04:35 Micro: Microbiology 03/03/22 10:05 Blood Culture - Preliminary Blood NEGATIVE TO DATE 03/03/22 10:05 Blood Culture - Preliminary Blood NEGATIVE TO DATE A&P Assessment and plan (1) Diverticulitis: Contained perforation. No abscess. Surgical recommendations appreciated. Conservative treatment for now. Advance to clear liquid diet today. We will advance gradually to full liquid diet. Most likely plan for discharge on full liquid diet. Continue empiric Zosyn. D5 NS at 75 cc/h. Protonix, Zofran as needed. Early ambulation. Incentive spirometry. Morphine as needed 1 mg every 4 hours for pain. Check blood cultures. Plan High blood pressures: Most likely secondary to pain. Hydralazine 10 mg every 4 hours as needed for systolic blood pressure of 160 mmHg and more. Full code. Clear liquid diet Protonix for PUD prophylaxis Heparin 5000 every 12 DVT prophylaxis Attestations Medical Necessity Statement*: Patient requires further hospitalization for management of contained perforation of diverticulitis while she is treated conservatively and diet is gradually advanced Time Spent in Patient Care: Greater than 35 minutes Coding Level of Care Code Acute Protocol Officer for [facility] Diagnoses Diverticulitis K57.92
[2022-03-04] MEDS: docusate sodium 100 mg Capsule PO (17:19)
[2022-03-04] MEDS: sennosides 8.6 mg Tablet 17.2 MG PO (20:57)
[2022-03-04] MEDS: ALPRAZolam 0.5 mg Tablet 0.25 MG PO (21:22)
[2022-03-05] MEDS: acetaminophen 325 mg Tablet 650 MG PO ×4 (03:35→23:41)
[2022-03-05] MEDS: piperacillin-tazobactam 3.375 GM in sodium chloride 0.9% (plus) 50 ML IV ×3 (03:35→19:51)
[2022-03-05 03:37] VITALS: BP 148/86; PULSE 90; RESP 18; TEMP 37.3; O2SAT 95
[2022-03-05 05:17] LABS: Basophils # 0.1 10^3/uL (0.0-0.1); Basophils % 0.4 %; Eosinophils # 0.2 10^3/uL (0.0-0.8); Eosinophils % 1.2 %; Hemoglobin 12.7 g/dL (11.5-15.3); Lymphocytes # 1.8 10^3/uL (0.8-4.8); Lymphocytes % 12.9 %; Mean Corpuscular HGB Conc 32.6 g/dL (30.0-36.0); Mean Corpuscular Hemoglobin 31.4 pg (28.0-34.0); Mean Corpuscular Volume 96.5 fl (81-99); Mean Platelet Volume 10.3 fL (7.4-10.4); Monocytes # 0.8 10^3/uL (0.2-0.9); Monocytes % 5.7 %; Neutrophils % 79.4 %; Nucleated Red Blood Cells % 0 %; Platelet Count 232 10^3/cmm (130-400); Red Blood Count 4.04 10^6/uL (4.1-5.3); Red Cell Distribution Width 14.8 % (12.1-15.1); White Blood Count 13.9 10^3/uL (4.0-10.0)
[2022-03-05] MEDS: enoxaparin 40 mg/0.4 mL Syringe SUBCUT (05:17)
[2022-03-05] MEDS: dextrose 5%-sod chloride 0.9% 1,000 ML 75 ML IV (05:19)
[2022-03-05 05:41] LABS: Alanine Aminotransferase 14 U/L (0-33); Albumin Level 2.9 g/dL (3.5-5.2); Alkaline Phosphatase 69 U/L (35-105); Anion Gap 11.5 (5-19); Aspartate Amino Transferase 13 U/L (0-32); Blood Urea Nitrogen 8 mg/dL (8-23); Calcium 7.9 mg/dL (8.5-10.5); Carbon Dioxide 25 mmol/L (22-29); Chloride 107 mmol/L (98-107); Globulin 2.9 g/dL (1.3-4.6); Glucose 122 mg/dL (65-115); Osmolality Calculated 290 mOsm/kg (285-295); Potassium 3.5 mmol/L (3.5-5.1); Sodium 140 mmol/L (136-145); Total Bilirubin 0.6 mg/dL (0.15-1.2); Total Protein 5.8 g/dL (6.6-8.7)
[2022-03-05 08:00] VITALS: BP 146/82; PULSE 89; RESP 17; TEMP 36.9; O2SAT 95
[2022-03-05] MEDS: pantoprazole 40 mg SDV IVP (08:24)
[2022-03-05] MEDS: docusate sodium 100 mg Capsule PO ×2 (08:24→17:03)
--- NOTE | 2022-03-05 10:00 | PM.PN ---
Subjective Subjective: No acute events overnight. She did not sleep well because of the frequent urination. She is on clear liquid diet and IV fluids. Passing gas. Abdominal pain is still present, continues to improve Vitals/I&O/Wt Last Vital Signs Temp 98.4 F 03/05/22 08:00 Pulse 89 03/05/22 08:00 Resp 17 03/05/22 08:00 BP 146/82 03/05/22 08:00 Pulse Ox 95 03/05/22 08:00 O2 Del Method 03/05/22 03:37 O2 Flow Rate 2 03/05/22 08:36 03/04/22 03/05/22 03/05/22 22:59 06:59 14:59 Intake Total 1302.5 / 1902.5 1200 / 3102.5 50 / 50 Balance 1302.5 / 1902.5 1200 / 3102.5 50 / 50 Physical Exam Narrative: General: [No acute distress] Psych: [AAOx3] Eyes: [sclerae are white] Head/ENT: [normocephalic, symmetric] CV: [regular] pulse, not tachycardic, no JVD Lungs: [symmetrical chest rise] Abdomen: [soft, ND, less tender to palpation than yesterday. No peritoneal signs.] Ext: [no obvious traumatic deformities] Skin: warm Data : 03/05/22 04:42 03/05/22 04:42 Micro: Microbiology 03/03/22 10:05 Blood Culture - Preliminary Blood NEGATIVE TO DATE 03/03/22 10:05 Blood Culture - Preliminary Blood NEGATIVE TO DATE A&P Assessment and plan (1) Diverticulitis: (2) Obesity: (3) Dehydration: (4) Hypertension: Plan Advance to full liquid diet, stop IV fluids Continue IV antibiotics, pain control, DVT prophylaxis Bowel regimen Frequent ambulation I will give her probiotics Attestations Medical Necessity Statement*: Diverticulitis Coding Level of Care Code Acute Warehouse Insulation Worker for [facility] Fenton Diagnoses Diverticulitis K57.92 Obesity E66.9 Dehydration E86.0 Hypertension I10
[2022-03-05] MEDS: polyethylene glycol 3350 Pkt 17 gm PO (10:23)
[2022-03-05] MEDS: lactobacillus 1 Tablet 1 TAB PO ×2 (10:23→17:03)
--- NOTE | 2022-03-05 11:27 | PM.PN ---
Subjective Subjective: No acute events overnight. Patient stated last night she was up and down multiple times to pass urine. She had a bowel movement earlier today morning. Continues to pass flatus. Tolerating clear liquid diet well. Diet advanced to full liquid today. Vitals/I&O/Wt Last Vital Signs Temp 98.4 F 03/05/22 08:00 Pulse 89 03/05/22 08:00 Resp 17 03/05/22 08:00 BP 146/82 03/05/22 08:00 Pulse Ox 95 03/05/22 08:00 O2 Del Method 03/05/22 03:37 O2 Flow Rate 2 03/05/22 08:36 03/04/22 03/05/22 03/05/22 22:59 06:59 14:59 Intake Total 1302.5 / 1902.5 1200 / 3102.5 422.5 / 422.5 Balance 1302.5 / 1902.5 1200 / 3102.5 422.5 / 422.5 Physical Exam Narrative: General: No acute distress, AO x3 HEENT: PERRLA, pupils bilaterally equal and reactive, pallors not present Chest: Normal vesicular breath sounds, no added sounds, equal good air entry bilaterally CVS: S1-S2 regular, no murmurs, no tachycardia, no gallops, no rubs Abdomen: Soft, nontender, no organomegaly, bowel sounds present Neuro: No focal deficits, no facial deformity, AO x3, power 5/5 in all limbs Data : 03/05/22 04:42 03/05/22 04:42 Micro: Microbiology 03/03/22 15:24 MRSA Culture - Final Nose 03/03/22 10:05 Blood Culture - Preliminary Blood NEGATIVE TO DATE 03/03/22 10:05 Blood Culture - Preliminary Blood NEGATIVE TO DATE A&P Assessment and plan (1) Diverticulitis: Contained perforation. No abscess. Surgical recommendations appreciated. Conservative treatment for now. Advance to clear liquid diet today. We will advance gradually to full liquid diet. Most likely plan for discharge on full liquid diet. Continue empiric Zosyn. D5 NS at 75 cc/h. Protonix, Zofran as needed. Early ambulation. Incentive spirometry. Morphine as needed 1 mg every 4 hours for pain. Check blood cultures. Plan High blood pressures: Most likely secondary to pain. Hydralazine 10 mg every 4 hours as needed for systolic blood pressure of 160 mmHg and more. Full code. Clear liquid diet Protonix for PUD prophylaxis Heparin 5000 every 12 DVT prophylaxis Plan for the day: Stop IV fluids. Advance to full liquid diet. Amlodipine 5 mg oral daily for high blood pressures. Discharge planning: Home with home health once ready as per surgical team. Patient most likely will need a colonoscopy as an outpatient in 6 to 8 weeks on discharge. Attestations Medical Necessity Statement*: Requires further hospitalization for management of diverticulitis with contained perforation while diet is advanced Time Spent in Patient Care: Greater than 35 minutes Coding Level of Care Code Acute Call Center Director for [facility] Diagnoses Diverticulitis K57.92
[2022-03-05 12:00] VITALS: BP 149/80; PULSE 90; RESP 16; TEMP 37.2; O2SAT 94
[2022-03-05] MEDS: amlodipine 5 mg Tablet PO (12:00)
--- NOTE | 2022-03-05 13:51 | PC.NURSE ---
Patient up with family member and ambulating in hallway with IV pole. No current needs at this time.
[2022-03-05 15:54] VITALS: BP 144/75; PULSE 84; RESP 17; TEMP 36.9; O2SAT 96
[2022-03-05] MEDS: ondansetron 2 mg/ML SDV 2 mL 4 MG IVP (17:04)
--- NOTE | 2022-03-05 17:28 | PC.NURSE ---
Pt sitting up in bed eating dinner with family member at bedside. VSS and pt A&O. No further needs at this time.
[2022-03-05 20:00] VITALS: BP 151/74; PULSE 87; RESP 17; TEMP 37.3; O2SAT 93
[2022-03-05] MEDS: ALPRAZolam 0.5 mg Tablet 0.25 MG PO (21:28)
[2022-03-06] VITALS: BP 160/84; PULSE 91; RESP 17; TEMP 36.9; O2SAT 95
[2022-03-06 04:00] VITALS: BP 150/82; PULSE 85; RESP 17; TEMP 36.8; O2SAT 93
[2022-03-06] MEDS: enoxaparin 40 mg/0.4 mL Syringe SUBCUT (04:07)
[2022-03-06] MEDS: piperacillin-tazobactam 3.375 GM in sodium chloride 0.9% (plus) 50 ML IV (04:07)
[2022-03-06 04:17] LABS: Basophils # 0.1 10^3/uL (0.0-0.1); Basophils % 0.5 %; Eosinophils # 0.2 10^3/uL (0.0-0.8); Eosinophils % 1.7 %; Hematocrit 39.2 % (37.0-47.0); Hemoglobin 12.9 g/dL (11.5-15.3); Lymphocytes # 2.5 10^3/uL (0.8-4.8); Lymphocytes % 19.3 %; Mean Corpuscular HGB Conc 32.9 g/dL (30.0-36.0); Mean Corpuscular Hemoglobin 31.9 pg (28.0-34.0); Mean Corpuscular Volume 96.8 fl (81-99); Monocytes % 7.2 %; Neutrophils # 9.29 10^3/uL (1.8-7.7); Neutrophils % 70.7 %; Nucleated Red Blood Cells % 0 %; Platelet Count 250 10^3/cmm (130-400); Red Blood Count 4.05 10^6/uL (4.1-5.3); Red Cell Distribution Width 14.8 % (12.1-15.1); White Blood Count 13.1 10^3/uL (4.0-10.0)
[2022-03-06 08:00] VITALS: BP 143/72; PULSE 82; RESP 18; TEMP 37.3; O2SAT 94
--- NOTE | 2022-03-06 08:09 | P.PN_ITS ---
Subjective Subjective: Patient reports that her pain is much improved. Denies any nausea or vomiting. She had 2 large bowel movements yesterday. Vitals/I&O/Wt Last Vital Signs Temp 98.2 F 03/06/22 04:00 Pulse 85 03/06/22 04:00 Resp 17 03/06/22 04:00 BP 150/82 03/06/22 04:00 Pulse Ox 93 03/06/22 04:00 O2 Del Method 03/05/22 03:37 O2 Flow Rate 2 03/05/22 08:36 03/05/22 03/06/22 03/06/22 22:59 06:59 14:59 Intake Total 290 / 952.5 50 / 1002.5 Balance 290 / 952.5 50 / 1002.5 Physical Exam Narrative: General: No acute distress, awake alert and oriented x3 Abdomen soft, mildly distended, mild tenderness to palpation suprapubically, no guarding rebound or masses Data : 03/06/22 03:55 03/05/22 04:42 Micro: Microbiology 03/03/22 15:24 MRSA Culture - Final Nose A&P Assessment and plan (1) Diverticulitis of large intestine with complication: Plan Continue antibiotics. I recommend that she complete a 14-day course of antibiotics with Augmentin at home Soft diet Ambulate Surgically stable for discharge if tolerating soft diet Follow-up with me in 2 weeks. She will need a colonoscopy in 6 to 8 weeks Attestations Medical Necessity Statement*: Further hospitalization per hospitalist Coding Level of Care Code Acute Interventional Radiology Rn for [facility] Diagnoses Diverticulitis of large intestine with complication K57.32
[2022-03-06] MEDS: acetaminophen 325 mg Tablet 650 MG PO (08:20)
[2022-03-06] MEDS: pantoprazole DR 40 mg Tablet PO (08:21)
[2022-03-06] MEDS: lactobacillus 1 Tablet 1 TAB PO (08:21)
[2022-03-06] MEDS: amlodipine 5 mg Tablet PO (08:21)
--- NOTE | 2022-03-06 10:50 | PM.DCS ---
Discharge Providers Date of Admission: 03/03/22 02:24 Date of Discharge: March 06, 2022 Attending Provider at Admission: Chelsey Moreau MD Attending Provider at Discharge: Jose Oates Primary Care Provider: Makenzie Yoon MD Diagnoses at Discharge Discharge Diagnosis (1) Diverticulitis of large intestine with complication: Status: Acute Reason for Visit Reason for Visit: lower abd pain Hospital Course Hospital Course Pleasant 76-year-old lady was hospitalized for assessment of management of contained perforated diverticulitis, without abscess, was assessed by surgery, treated conservatively with IV antibiotic with Zosyn, with bowel rest, transient IV hydration, encouraged ambulation, she overall did well, with resolution of fever, improving leukocytosis, denies any abdominal pain, advance to clears and tolerating soft diet this morning. She will complete 14-day course with Augmentin at home per surgery recommendations with follow-up in office in 2 weeks with reassessment and arrangements for colonoscopy. Physical Exam Narrative: Sitting up in chair. Pleasant, conversant. Visited by two family members. Const: COMMON NORMALS: patient oriented x3 and alert GENERAL APPEARANCE: cooperative NUTRITIONAL APPEARANCE: overweight ORIENTATION/CONSCIOUSNESS: Yes awake HENMT: COMMON NORMALS: oropharynx normal Neck/C-Spine: COMMON NORMALS: no JVD Resp: COMMON NORMALS: normal respiratory effort and clear to auscultation bilaterally AUSCULTATION: clear to auscultation bilaterally Cardio: COMMON NORMALS: no JVD, regular rhythm, S1 normal heart sound present, S2 normal heart sound present and No murmurs present (Cardio) RHYTHM: regular rhythm HEART SOUNDS: S1 normal heart sound present and S2 normal heart sound present GI: COMMON NORMALS: Normal to inspection, nondistended, normoactive bowel sounds present, Soft to palpation and non-tender PALPATION: Yes Soft to palpation Extremity: COMMON NORMALS: no joint enlargement and no pedal edema Neuro: COMMON NORMALS: patient oriented x3 and moves all extremities SENSORIUM/ORIENTATION: Yes alert Skin: COMMON NORMALS: no rashes or lesions noted GENERAL SKIN EXAM: no rashes or lesions noted Discharge Data Studies Completed and Pending Completed Studies During Hospitalization Category Date Time Status CT abdomen pelvis w con* [id number] Stat Cat Scan 03/02/22 23:28 Completed Pending at discharge Category Date Time Status Blood Culture Stat Lab 03/03/22 10:05 Results Radiology Impressions Abdomen/Pelvis CT 03/02/22 23:28 IMPRESSION: 1. Small hiatal hernia. 2. Fatty infiltration of the liver. 3. Cholelithiasis without cholecystitis or choledocholithiasis. 4. Acute diverticulitis with contained perforation adjacent to the urinary bladder. No abscess. COMMENTS: Consistent with the [employer]'s Incidental Findings Committee white paper (J Am Aleyda Radiol 2018): Any incidental renal lesion less than 1 cm or classified as too small to characterize, or any incidental cystic renal lesion characterized as simple-appearing, is likely benign. No follow-up imaging is recommended for these lesions per consensus recommendations based on imaging criteria. ADDENDUM: 03/03/22 0157 THIS REPORT CONTAINS FINDINGS THAT MAY BE CRITICAL TO PATIENT CARE. The findings were verbally communicated by me to ELVIS BAEZA via telephone conference at 1:55 AM CDT on 03/03/2022. The findings were acknowledged and understood. Laboratory Results WBC 13.1 10^3/uL (4.0-10.0) H 03/06/22 03:55 RBC 4.05 10^6/uL (4.1-5.3) L 03/06/22 03:55 Hgb 12.9 g/dL (11.5-15.3) 03/06/22 03:55 Hct 39.2 % (37.0-47.0) 03/06/22 03:55 MCV 96.8 fl (81-99) 03/06/22 03:55 MCH 31.9 pg (28.0-34.0) 03/06/22 03:55 MCHC 32.9 g/dL (30.0-36.0) 03/06/22 03:55 RDW 14.8 % (12.1-15.1) 03/06/22 03:55 Plt Count 250 10^3/cmm (130-400) 03/06/22 03:55 MPV 10.0 fL (7.4-10.4) 03/06/22 03:55 Neut % (Auto) 70.7 % 03/06/22 03:55 Lymph % (Auto) 19.3 % 03/06/22 03:55 Schley % (Auto) 7.2 % 03/06/22 03:55 Eos % (Auto) 1.7 % 03/06/22 03:55 Baso % (Auto) 0.5 % 03/06/22 03:55 Neut # (Auto) 9.29 10^3/uL (1.8-7.7) H 03/06/22 03:55 Lymph # (Auto) 2.5 10^3/uL (0.8-4.8) 03/06/22 03:55 Schley # (Auto) 1.0 10^3/uL (0.2-0.9) H 03/06/22 03:55 Eos # (Auto) 0.2 10^3/uL (0.0-0.8) 03/06/22 03:55 Baso # (Auto) 0.1 10^3/uL (0.0-0.1) 03/06/22 03:55 Nucleated RBC % (auto) 0 % 03/06/22 03:55 Nucleated RBCs # 0.0 /100WBC 03/06/22 03:55 Sodium 140 mmol/L (136-145) 03/05/22 04:42 Potassium 3.5 mmol/L (3.5-5.1) 03/05/22 04:42 Chloride 107 mmol/L (98-107) 03/05/22 04:42 Carbon Dioxide 25 mmol/L (22-29) 03/05/22 04:42 Anion Gap 11.5 (5-19) 03/05/22 04:42 BUN 8 mg/dL (8-23) 03/05/22 04:42 Creatinine 0.6 mg/dL (0.5-0.9) 03/05/22 04:42 GFR Calculation Not Reportable 03/05/22 04:42 Glucose 122 mg/dL (65-115) H 03/05/22 04:42 Estimat Average Glucose 97 03/04/22 04:35 Hemoglobin A1c 5.0 % (4.0-6.0) 03/04/22 04:35 Calculated Osmolality 290 mOsm/kg (285-295) 03/05/22 04:42 Lactate 2.5 mmol/L (0.5-2.2) H 03/02/22 21:00 Calcium 7.9 mg/dL (8.5-10.5) L 03/05/22 04:42 Iron 19 ug/dL (37-145) L 03/04/22 04:35 TIBC 225 mcg/dl 03/04/22 04:35 % Saturation 8.4 % (20-50) L 03/04/22 04:35 Unsat Iron Binding 206 ug/dL (112-347) 03/04/22 04:35 Total Bilirubin 0.6 mg/dL (0.15-1.2) 03/05/22 04:42 AST 13 U/L (0-32) 03/05/22 04:42 ALT 14 U/L (0-33) 03/05/22 04:42 Alkaline Phosphatase 69 U/L (35-105) 03/05/22 04:42 C-Reactive Protein 238.1 mg/L (0.0-4.9) H 03/04/22 04:35 Total Protein 5.8 g/dL (6.6-8.7) L 03/05/22 04:42 Albumin 2.9 g/dL (3.5-5.2) L 03/05/22 04:42 Globulin 2.9 g/dL (1.3-4.6) 03/05/22 04:42 Triglycerides 89 mg/dL (0-150) 03/04/22 04:35 Cholesterol 165 mg/dL (0-200) 03/04/22 04:35 LDL Cholesterol, Calc 90 mg/dL (50-129) 03/04/22 04:35 Total VLDL Cholesterol 18 mg/dL (0-30) 03/04/22 04:35 HDL Cholesterol 57 mg/dL (60-100) L 03/04/22 04:35 Cholesterol/HDL Ratio 2.89 mg/dL (0.0-4.40) 03/04/22 04:35 Lipase 30 U/L (13-60) 03/02/22 20:33 Vitamin B12 630 pg/mL (232-1245) 03/04/22 04:35 Folate > 20.0 ng/mL (4.8-37.3) 03/04/22 04:35 TSH 3.53 uIU/mL (0.27-4.20) 03/04/22 04:35 Urine Color Yellow (Yellow) 03/02/22 20:23 Urine Appearance Clear (CLEAR) 03/02/22 20:23 Urine pH 5 (5-7) 03/02/22 20:23 Ur Specific [place] 1.015 (1.005-1.030) 03/02/22 20: Urine Protein Neg (Negative) 03/02/22 20: Urine Glucose (UA) Norm (Normal) 03/02/22 20: Urine Ketones Negative (Negative) 03/02/22 20: Urine Blood Trace (Negative) H 03/02/22 20: Urine Nitrate Negative (Negative) 03/02/22 20: Urine Bilirubin Neg (Negative) 03/02/22 20: Urine Urobilinogen Norm mg/dL (Negative) 03/02/22 20: Ur Leukocyte Esterase Negative (Negative) 03/02/22 20: Urine RBC 0-4 /hpf (0-2) H 03/02/22: Urine WBC 0-4 /hpf (0-5) H 03/02/22 20: Ur Squamous Epith Cells 0-4 /hpf (0-5) H 03/02/22: Amorphous Sediment Not Reportable 03/02/22: Urine Bacteria None /hpf (NONE) 03/02/22 20: Vitals Last Vital Signs Temp 99.2 F 03/06/22 08:00 Pulse 82 03/06/22 08:00 Resp 18 03/06/22 08:00 BP 143/72 03/06/22 08:00 Pulse Ox 94 03/06/22 08:00 O2 Del Method 03/05/22 03:37 O2 Flow Rate 2 03/05/22 08:36 Discharge Plan Discharge Patient Disposition: Home Condition: Stable Prescriptions: New amoxicillin-pot clavulanate 875-125 mg tablet 1 tab PO BID Qty: 21 0RF Continued multivitamin Tablet 1 tab PO DAILY turmeric 400 mg capsule 400 mg PO BID herbal sleep aid 1 tab PO BEDTIME Calcium 600 600 mg calcium (1,500 mg) Tablet 1,200 mg PO BEDTIME Fish Oil 100-160-1,000 mg Capsule 1 cap PO DAILY MSM 1,000 mg Capsule 1,000 mg PO BID Tylenol Arthritis 650 mg Tablet Extended Release 650 mg PO Q8H PRN (Reason: Pain) Motrin 600 mg Tablet 1,200 mg PO Q8H PRN (Reason: Pain) Aleve 220 mg Capsule 220 mg PO Q8H PRN (Reason: Pain) garlic 200 mg Tablet 400 mg PO DAILY Discharge Orders: Discharge Order (Routine); Ordered 03/06/22 Ordered By: Jose Oates Referrals: Osvaldo Koch DO [Physician] - 2 weeks Makenzie Yoon MD [Primary Care Provider] - 4-7 days Discharge Diet: Advance as tolerated and GI Soft Discharge Activity: Increase activity as tolerated Patient Instructions: Amoxicillin/Clavulanate Potassium (By mouth), Diverticulitis (GEN), GI (Gastrointestinal) Soft Diet (GEN) Activity Restrictions/Additional Instructions: Follow up with surgery for reassessment and to set up colonoscopy. Discharge Attestations Time Spent in Discharge Care*: greater than 30 min Quality Metrics Clinical Quality Measures [ No reported AMI, CVA or VTE this stay] Coding Level of Care Code Acute Chg [facility] note Diagnoses Diverticulitis of large intestine with complication K57.32
--- NOTE | 2022-03-06 10:58 | PC.SOCIAL ---
IMM update IMM updated with patient and family at bedside. Verbalized an understanding. Copy Pg 2 provided. Initialled, dated, timed, and placed in chart.
[2022-03-06 12:03] VITALS: BP 143/72; PULSE 82; RESP 18; TEMP 37.3; O2SAT 94
== END 2022-03-06 11:50 | disposition home or self-care (01) | DRG 392 ==
LOC: ER 03-03 02:27 → MEDSURG 03-03 03:12
PROVIDERS: Student in an Organized Health Care Education/Training Program; Surgery; Admitting Provider Student in an Organized Health Care Education/Training Program; Emergency Provider Emergency Medicine; PCP Family Medicine; Visit Provider Internal Medicine
DX: K57.20 Diverticulitis of large intestine with perforation and abscess without bleeding (principal); Z80.0 Family history of malignant neoplasm of digestive organs; Z96.652 Presence of left artificial knee joint; E66.9 Obesity, unspecified; Z68.39 Body mass index [BMI] 39.0-39.9, adult; E86.0 Dehydration; R03.0 Elevated blood-pressure reading, without diagnosis of hypertension
CPT/HCPCS: 12345; 36415; 74177; 80053; 80061; 81001; 82607; 82746; 83036; 83540; 83550; 83605; 83690; 84443; 85025; 86140; 87040; 87641; 96365; 96367; 96372; 96375; 96376; 99285; C9113; J0744; J1170; J1644; J1650; J2270; J2405; J2543; Q9967; S0030

== ENCOUNTER → 2022-03-21 08:12 | Outpatient (BNVA) | payer MEDICARE, SELFPAY | PROVIDERS: PCP Family Medicine; Visit Provider Surgery | DX: Z09 Encounter for follow-up examination after completed treatment for conditions other than malignant neoplasm (principal); K57.32 Diverticulitis of large intestine without perforation or abscess without bleeding | CPT/HCPCS: 99203 ==

== ENCOUNTER 2022-05-12 07:55 | Day surgery (SDC) | payer MEDICARE, SELFPAY ==
[2022-05-10 08:13] VITALS: BMI 37.5
[2022-05-12 08:21] VITALS: BP 143/114; PULSE 85; RESP 18; TEMP 36.4; O2SAT 96
[2022-05-12] MEDS: sodium chloride 0.9% 1,000 ML 30 ML IV (08:21)
--- NOTE | 2022-05-12 08:58 | P.ANESASSM_ITS ---
Pre-Anesthetic Assessment Height/Weight: Height 1.7 m Weight 108.862 kg Temp Pulse Resp BP Pulse Ox O2 Del Method 97.5 F L 85 18 143/114 96 05/12/22 08:21 05/12/22 08:21 05/12/22 08:21 05/12/22 08:21 05/12/22 08:21 05/12/22 08:21 Preop Diagnosis: Diverticulitis Operation Date: 05/12/22 09:30 Proposed Procedures p Colonoscopy 14697,K57.32(Not Applicable) - Osvaldo Koch, DO Was Beta Kalyn taken within 24 hours: N/A Was Clonidine taken within 24 hours: N/A Last intake: Intake Last Liquid Date 05/11/22 Last Liquid Time 23:00 Last Solid Date 05/10/22 Last Solid Time 19:00 Social No alcohol and No tobacco Exam alert, oriented x 3, clear to auscultation bilaterally and regular rate & rhythm Airway Submandibular: within normal limits Cervical ROM: within normal limits Mallampati: Class II Dentition: full History/ROS No significant history except as noted and No significant complaints Pulmonary None reported CV/HEM None reported None reported Hepatic None reported GI Gastroesophageal Reflux Disease Metabolic Morbid Obesity [facility] [place] None reported Neuropsych None reported Anesthetic Plan ASA status: 2 Anesthesia: Anesthesia Evaluation and MAC Risk of > 500 ml blood loss (7ml/kg in children): No Medications/Allergies Home Medications Medication Instructions Recorded Confirmed Last Taken Type herbal sleep aid 1 tab PO BEDTIME 11/10/20 05/12/22 05/10/22 History multivitamin 1 tab PO DAILY 11/10/20 05/12/22 05/10/22 History turmeric 400 mg capsule 400 mg PO BID 11/10/20 05/12/22 05/10/22 History acetaminophen 650 mg 650 mg PO Q8H PRN Pain 03/03/22 05/12/22 05/10/22 History tablet,extended release calcium carbonate 600 mg calcium 1,200 mg PO BEDTIME 03/03/22 05/12/22 05/10/22 History (1,500 mg) tablet (Calcium) garlic 200 mg tablet 400 mg PO DAILY 03/03/22 05/12/22 05/10/22 History ibuprofen 600 mg tablet 1,200 mg PO Q8H PRN Pain 03/03/22 05/12/22 05/10/22 History methylsulfonylmethane 1,000 mg 1,000 mg PO BID 03/03/22 05/12/22 05/10/22 History capsule (MSM) naproxen sodium 220 mg capsule 220 mg PO Q8H PRN Pain 03/03/22 05/12/22 05/10/22 History (Aleve) omega 0-whk-niu-fish oil 100 1 cap PO DAILY 03/03/22 05/12/22 05/10/22 History mg-160 mg-1,000 mg capsule (Fish Oil) Allergies Allergy/AdvReac Type Severity Reaction Status Date / Time No Known Allergies Allergy Verified 05/12/22 08:18 Current Medications Generic Name Dose Route Start Last Admin Trade Name Freq PRN Reason Stop Dose Admin Sodium Chloride 1,000 mls @ 30 mls/hr 05/12/22 08:15 05/12/22 08:21 Sodium Chloride 0.9% IV 05/13/22 08:14 30 mls/hr .Q24H RAFFI Administration PFSH Anesthesia Medical History No pertinent past medical history Denies diabetes, asthma, hypertension, seizures, DVT/PE PCP: Dr. Makenzie Yoon Rectocele 10/2020--grade 3 rectocele, grade 1 cystocele and grade 1 vault prolapse. Declined surgery wanted pessary-fitted with a #4 white ring pessary with support no knob on 11/24/3020. Self discontinued it on 02/14/2021 due to bowel issues and feels fine without any symptoms of prolapse and so pessary was not [id number] exam in 6 months Surgical History (Updated 03/21/22 @ 09:27 by Osvaldo Koch DO) Hx of colonoscopy S/P hysterectomy ---total abdominal hysterectomy with by lateral salpingo-oophorectomy done for cyst on uterus. She was told that there was no cancer or precancer Status post total left knee replacement 2017. Status post tubal ligation 1978-- immediately . Family History Mother Breast cancer Diagnosed at age 30, of same at age 32 Father Colon cancer diagnosed at age 88 Grandmother Diabetes maternal Family/Other Diabetes maternal aunts and uncles Stroke maternal Sister Hyperlipidemia Daughter Thyroid condition Denies family history of Ovarian cancer Heart disease Hypertension Uterine cancer Social History Smoking and tobacco status: never smoked Data Anesthesia Cardiac Studies: No Data to Display
--- NOTE | 2022-05-12 09:22 | PM.HP ---
Providers/Chief Complaint Primary Care Provider: Makenzie Yoon MD Chief Complaint: Diverticulitis of large intestine without perforat History of Present Illness Zoë Chapman is a 76 year old female here for colonoscopy Medications/Allergies Home Medications Medication Instructions Recorded Confirmed Last Taken Type herbal sleep aid 1 tab PO BEDTIME 11/10/20 05/12/22 05/10/22 History multivitamin 1 tab PO DAILY 11/10/20 05/12/22 05/10/22 History turmeric 400 mg capsule 400 mg PO BID 11/10/20 05/12/22 05/10/22 History acetaminophen 650 mg 650 mg PO Q8H PRN Pain 03/03/22 05/12/22 05/10/22 History tablet,extended release calcium carbonate 600 mg calcium 1,200 mg PO BEDTIME 03/03/22 05/12/22 05/10/22 History (1,500 mg) tablet (Calcium) garlic 200 mg tablet 400 mg PO DAILY 03/03/22 05/12/22 05/10/22 History ibuprofen 600 mg tablet 1,200 mg PO Q8H PRN Pain 03/03/22 05/12/22 05/10/22 History methylsulfonylmethane 1,000 mg 1,000 mg PO BID 03/03/22 05/12/22 05/10/22 History capsule (MSM) naproxen sodium 220 mg capsule 220 mg PO Q8H PRN Pain 03/03/22 05/12/22 05/10/22 History (Aleve) omega 1-ton-zfk-fish oil 100 1 cap PO DAILY 03/03/22 05/12/22 05/10/22 History mg-160 mg-1,000 mg capsule (Fish Oil) Allergies Allergy/AdvReac Type Severity Reaction Status Date / Time No Known Allergies Allergy Verified 05/12/22 08:18 PFSH Acute PFSH: Medical History No pertinent past medical history Denies diabetes, asthma, hypertension, seizures, DVT/PE PCP: Dr. Makenzie Yoon Rectocele 10/2020--grade 3 rectocele, grade 1 cystocele and grade 1 vault prolapse. Declined surgery wanted pessary-fitted with a #4 white ring pessary with support no knob on 11/24/3020. Self discontinued it on 02/14/2021 due to bowel issues and feels fine without any symptoms of prolapse and so pessary was not [id number]-mg exam in 6 months Surgical History (Updated 03/21/22 @ 09:27 by Osvaldo Koch DO) Hx of colonoscopy S/P hysterectomy ---total abdominal hysterectomy with by lateral salpingo-oophorectomy done for cyst on uterus. She was told that there was no cancer or precancer Status post total left knee replacement 2017. Status post tubal ligation 1978-- immediately . Family History Mother Breast cancer Diagnosed at age 30, of same at age 32 Father Colon cancer diagnosed at age 88 Grandmother Diabetes maternal Family/Other Diabetes maternal aunts and uncles Stroke maternal Sister Hyperlipidemia Daughter Thyroid condition Denies family history of Ovarian cancer Heart disease Hypertension Uterine cancer Social History Smoking and tobacco status: never smoked Vitals/I&O/Wt Last Vital Signs Temp 97.5 F L 05/12/22 08:21 Pulse 85 05/12/22 08:21 Resp 18 05/12/22 08:21 BP 143/114 05/12/22 08:21 Pulse Ox 96 05/12/22 08:21 O2 Del Method 05/12/22 08:21 A&P Assessment and plan (1) Diverticulitis of large intestine with complication: Plan Colonoscopy Attestations Medical Necessity Statement*: Home Coding Level of Care Code Acute Distributor Sales Manager for [facility] Diagnoses Diverticulitis of large intestine with complication K57.32
[2022-05-12 09:50] VITALS: BP 108/69; PULSE 75; RESP 20; TEMP 36.4; O2SAT 93
[2022-05-12 10:03] VITALS: BP 141/94; PULSE 78; RESP 18; O2SAT 94
--- NOTE | 2022-05-12 14:35 | ANE.PACU2 ---
Inpatient post-anesthesia follow up: Airway intact: Yes Vital signs: Temperature 97.5 F Pulse Rate 78 Respiratory Rate 18 Blood Pressure 141/94 Pulse Oximetry 94 Oxygen Delivery Me thod Room Air Oxygen Flow Rate 3 Fraction of Inspir ed Oxygen Hydration adequate: Yes Nausea and vomiting: No Pain level: 1 Mental status: Baseline
== END 2022-05-12 10:25 | disposition home or self-care (01) ==
PROVIDERS: PCP Family Medicine; Visit Provider Surgery
PROC: 0DJD8ZZ Inspection of Lower Intestinal Tract, Via Natural or Artificial Opening Endoscopic (ICD-10-PCS; CPT 45378; principal; 2022-05-12 09:30)
DX: K57.30 Diverticulosis of large intestine without perforation or abscess without bleeding (principal); D12.5 Benign neoplasm of sigmoid colon; K21.9 Gastro-esophageal reflux disease without esophagitis; E66.01 Morbid (severe) obesity due to excess calories; Z68.37 Body mass index [BMI] 37.0-37.9, adult
CPT/HCPCS: 45385; 88305; J2704; J7030

== ENCOUNTER → 2022-05-23 14:24 | Outpatient (BNVA) | payer MEDICARE, SELFPAY | PROVIDERS: PCP Family Medicine; Visit Provider Surgery | DX: Z09 Encounter for follow-up examination after completed treatment for conditions other than malignant neoplasm (principal); K57.92 Diverticulitis of intestine, part unspecified, without perforation or abscess without bleeding | CPT/HCPCS: 99212 ==

== ENCOUNTER 2023-01-01 11:07 | Outpatient (CLI) | payer MEDICARE, SELFPAY ==
--- NOTE | 2023-01-01 11:20 | MM_ITS ---
WS: [id number] BILATERAL 3D TOMOSYNTHESIS DIGITAL SCREENING MAMMOGRAM WITH CAD CLINICAL INFORMATION: SCREENING HISTORY: Screening mammogram. No current complaints. COMPARISON: 2021 TECHNIQUE: Bilateral CC and MLO views. FINDINGS: Fatty-replaced breasts bilaterally. No suspicious focal mass, asymmetry, calcifications, or director of solutions architecture ural distortion. No evidence of malignancy. Vascular calcification. A few incidental punctate calcifi cations. MM/[place] [id number] IMPRESSION: BI-RADS: 2-Benign FOLLOW UP: 1 Year Follow-up Recommend return to annual screening mammography.
== END 2023-01-01 11:08 | disposition home or self-care (01) ==
LOC: RAD 11:15 → MOBLMAM 11:18
PROVIDERS: PCP Family Medicine; Visit Provider Family Medicine
DX: Z12.31 Encounter for screening mammogram for malignant neoplasm of breast (principal)
CPT/HCPCS: 77063; 77067

== ENCOUNTER → 2023-01-16 14:05 | Outpatient (BNVA) | payer MEDICARE, SELFPAY | PROVIDERS: PCP Family Medicine; Referring Provider Family Medicine; Visit Provider Student in an Organized Health Care Education/Training Program | DX: M18.0 Bilateral primary osteoarthritis of first carpometacarpal joints; Z46.89 Encounter for fitting and adjustment of other specified devices | CPT/HCPCS: 20600; 73130; 97760; 99204; J3301; J3490; L3924 ==

== ENCOUNTER 2023-01-16 16:28 | Outpatient (CLI) | payer MEDICARE, SELFPAY | END 2023-01-16 16:29 | disposition home or self-care (01) | LOC: SPT 16:29 | PROVIDERS: PCP Family Medicine; Visit Provider Student in an Organized Health Care Education/Training Program | DX: Z46.89 Encounter for fitting and adjustment of other specified devices (principal); M18.0 Bilateral primary osteoarthritis of first carpometacarpal joints | CPT/HCPCS: 20600; 97760; 99204; J3301; J3490; L3924 ==

== ENCOUNTER → 2024-07-31 09:11 | Outpatient (BNVA) | payer MEDICARE, SELFPAY | PROVIDERS: PCP Family Medicine; Visit Provider Nurse Practitioner Family | DX: F42.4 Excoriation (skin-picking) disorder (principal); R58 Hemorrhage, not elsewhere classified; L81.4 Other melanin hyperpigmentation; Z08 Encounter for follow-up examination after completed treatment for malignant neoplasm; Z85.828 Personal history of other malignant neoplasm of skin | CPT/HCPCS: 11102; 99203 ==

== ENCOUNTER → 2024-08-28 13:38 | Outpatient (BNVA) | payer MEDICARE, SELFPAY | PROVIDERS: PCP Family Medicine; Visit Provider Nurse Practitioner Family | DX: L57.0 Actinic keratosis (principal); L81.4 Other melanin hyperpigmentation; Z08 Encounter for follow-up examination after completed treatment for malignant neoplasm; Z85.828 Personal history of other malignant neoplasm of skin; D48.5 Neoplasm of uncertain behavior of skin | CPT/HCPCS: 11102; 99213 ==

== ENCOUNTER 2024-09-16 13:59 | Outpatient (CLI) | payer MEDICARE, SELFPAY ==
--- NOTE | 2024-09-16 14:20 | XRR_ITS ---
PROCEDURE INFORMATION: Exam: XR Right Hip Exam date and time: 09/16/2024 2:48 PM Age: 78 years old Clinical indication: Hip pain; Right hip; Additional info: Pain in R hip TECHNIQUE: Imaging protocol: Radiologic exam of the right hip. Views: 1 view hip with pelvis when performed. COMPARISON: CT abdomen pelvis w con* [id number] 03/03/2022 12:12 AM FINDINGS: Bones/joints: No acute fractures. No bony destructive lesions. Decreased osseous mineralization subjectively. No dislocations or subluxations. Mild degenerative changes of the right hip joint. Soft tissues: No significant soft tissue abnormalities. XR/XR hip RT 2-3V wo/w pel* [id number] IMPRESSION: 1. No acute fractures or malalignment. 2. Decreased osseous mineralization subjectively.
--- NOTE | 2024-09-16 14:20 | MM_ITS ---
WS: [id number] BILATERAL 3D TOMOSYNTHESIS DIGITAL SCREENING MAMMOGRAPHY WITH CAD CLINICAL INFORMATION: SCREENING HISTORY: Screening mammogram. No current complaints. COMPARISON: 2022 TECHNIQUE: Bilateral CC and MLO views. FINDINGS: Scattered fibroglandular densities bilaterally. No suspicious focal mass, asymmetry, calcifications, or architectural distortion. No evidence of malignancy. Incidental punctate and lucent centered calcifications. Vascular calcifications. MM/MM scr tomosynthesis [id number] IMPRESSION: DENSITY: There are scattered areas of fibroglandular density. BI-RADS: 2 - Benign. FOLLOW UP: 1 Year Follow-up Recommend return to annual screening mammography.
--- NOTE | 2024-09-16 14:20 | XR_ITS ---
WS: [id number] SCREENING DEXA SCAN [place] CLINICAL INFORMATION: ASYMTOMATIC MENOPAUSAL STATE COMPARISON: 2021 FINDINGS: The L1-L4 bone mineral density measures 1.032 g/cm2. This corresponds to a T score score of -1.2 and Z score of -0.6. Left femoral neck bone mineral density measures 0.805 g/cm2. This corresponds to a T score of -1.6 and Z score of -0.5. Right femoral neck bone mineral density measures 0.812 g/cm2. This corresponds to a T score -1.6of and Z score of -0.4. Mean femoral neck bone mineral density measures 0.809 g/cm2. This corresponds to a T score of -1.6 and Z score of -0.4. XR/XR DEXA axial skeleton* [id number] IMPRESSION: Osteopenia lumbar spine. Osteopenia femoral necks. Patient's FRAX calculated 10 year probability for major osteoporotic fracture i s 14.9% and osteoporotic hip fracture is 4.3%.
--- NOTE | 2024-09-16 14:20 | XRR_ITS ---
PROCEDURE INFORMATION: Exam: XR Right Knee Exam date and time: 09/16/2024 2:48 PM Age: 78 years old Clinical indication: Pain; Knee; Right; Additional info: Pain in R knee TECHNIQUE: Imaging protocol: Radiologic exam of the right knee. Views: 4 views. COMPARISON: No relevant prior studies available. FINDINGS: Bones/joints: No fractures. No bony destructive lesions. Prominent marginal osteophytes. Moderate medial joint space narrowing. Decreased osseous mineralization. Soft tissues: No significant soft tissue abnormalities. XR/XR knee RT 3V* [id number] IMPRESSION: 1. No acute fractures or malalignment. 2. Grade 3 osteoarthritis of the knee. 3. Decreased osseous mineralization subjectively.
== END 2024-09-16 14:00 | disposition home or self-care (01) ==
LOC: RAD 14:03
PROVIDERS: PCP Family Medicine; Visit Provider Family Medicine
DX: Z12.31 Encounter for screening mammogram for malignant neoplasm of breast (principal); Z78.0 Asymptomatic menopausal state; R92.323 Mammographic fibroglandular density, bilateral breasts; R92.1 Mammographic calcification found on diagnostic imaging of breast; M85.89 Other specified disorders of bone density and structure, multiple sites; M17.11 Unilateral primary osteoarthritis, right knee; M25.761 Osteophyte, right knee; M85.861 Other specified disorders of bone density and structure, right lower leg; M16.11 Unilateral primary osteoarthritis, right hip
CPT/HCPCS: 73502; 73562; 77063; 77067; 77080

== ENCOUNTER → 2024-12-02 11:04 | Outpatient (BNVA) | payer MEDICARE, SELFPAY | PROVIDERS: PCP Family Medicine; Visit Provider Nurse Practitioner Family | DX: Z87.2 Personal history of diseases of the skin and subcutaneous tissue (principal); L57.8 Other skin changes due to chronic exposure to nonionizing radiation; X32.XXXA Exposure to sunlight, initial encounter; L81.4 Other melanin hyperpigmentation; Z08 Encounter for follow-up examination after completed treatment for malignant neoplasm; Z85.828 Personal history of other malignant neoplasm of skin; Z09 Encounter for follow-up examination after completed treatment for conditions other than malignant neoplasm | CPT/HCPCS: 99213 ==